=== PATIENT | female | born 1940 | race Caucasian/White ===

== ENCOUNTER 2019-07-07 14:16 | Emergency (ER) | payer OTHER ==
[2019-07-07] MEDS ORDERED: MORPHINE 2 MG/ML SYR ONE (15:14)
[2019-07-07] MEDS ORDERED: ONDANSETRON 4 MG/2 ML VIAL ONE (15:14)
[2019-07-07] MEDS ORDERED: CLINDAMYCIN 900MG/D5W 900 MG/50 ML IVPB IV ONE (15:14)
[2019-07-07] MEDS ORDERED: NA CHLORIDE 0.9% 1,000 ML ONE (15:14)
[2019-07-07 15:22] LABS: Protime INR 1.42
[2019-07-07 15:24] LABS: Absolute Lymphocytes (CBC) 1.6 K/uL (0.7-4.9); Basophils % 0.5 % (0-1.3); Hematocrit 38.2 % (36.0-45.0); Lymphocytes % 15.7 % (15.3-44.8); RBC Red Blood Cell Count 4.24 M/uL (3.86-4.86)
[2019-07-07 15:32] LABS: Albumin 3.5 g/dL (3.4-5.0); Bilirubin Total 0.9 mg/dL (0.2-1.0); Protein, Total 7.2 g/dL (6.4-8.2)
--- NOTE | 2019-07-07 16:03 | RAD REPORT ---
EXAM DESCRIPTION: CT - Soft Tissue Neck W/Contr - 07/07/2019 3:43 pm CLINICAL HISTORY: Neck pain with sore throat COMPARISON: None. TECHNIQUE: Computed axial tomography of the neck was obtained. 50 cc Isovue 300 was administered in travenously. Coronal and sagittal reconstruction was performed. All CT scans are performed using dose optimization technique as appropriate and may include automated exposure control or mA/KV adjustment according to patient size. FINDINGS: Marked edema is present within the subcutaneous tissues superficial to the left mandible and submental subcutaneous tissues. A fluid-filled abscess is not seen. Left aryepiglottic fold is thickened. The remainder of the pharynx, tongue base, larynx and subglotti c trachea appear unremarkable. The parapharyngeal fat is clear The parotid and submandibular glands appear unremarkable. Subcentimeter thyroid nodules likely benign No significant lymphadenopathy is seen The sinuses and mastoids are clear. IMPRESSION: Marked edema within the subcutaneous tissues superficial to the left mandible and submen deep region consistent with cellulitis Mild edema is present within the left aryepiglottic fold. An abscess is not seen
--- NOTE | 2019-07-07 16:13 | ER ---
Nurse's Notes [facility] Name: Erin Pereira Age: 79 yrs Sex: Female : 1940 Arrival Date: 07/07/2019 Time: 14:18 Bed 14 Private MD: Jonathon Mcclain Diagnosis: Dental caries-left mandible swelling, hematoma;Coagulation defect, unspecified-coumadin therapy Presentation: 07/07 14:19 Presenting complaint: Patient states: i had a dental bridge done 2 years ago, and it tw2 was fine, and i think i had pneumonia last week, i went to the dentist on Thursday and he said there is an infection of the bridge, he put me on hydrocodone 7.5, and amoxicillin, i have been taking them since Thursday, and the swelling got worse yesterday, i dont know if the swelling is from the antibiotics or what because i read on it that it can cause swelling as an allergy. Transition of care: patient was not received from another setting of care. Onset of symptoms was July 07, 2019. Risk Assessment: Do you want to hurt yourself or someone else? Patient reports no desire to harm self or others. Initial Sepsis Screen: Does the patient meet any 2 criteria? No. Patient's initial sepsis screen is negative. Does the patient have a suspected source of infection? No. Patient's initial sepsis screen is negative. Care prior to arrival: None. 14:19 Method Of Arrival: Ambulatory tw2 14:19 Acuity: WILLIE 3 tw2 Triage Assessment: 14:22 General: Appears in no apparent distress. Behavior is calm, cooperative, appropriate tw2 for age. Pain: Complains of pain in mouth and left jaw. EENT: Reports pain in lower left third molar, lower left second molar, lower left first molar, lower left second bicuspid and left jaw. Historical: - Allergies: 14:24 No Known Allergies; tw2 - Home Meds: 14:24 amlodipine 5 mg tab 1 tab once daily [Active]; atorvastatin 10 mg oral tab 1 tab once tw2 daily [Active]; carvedilol 3.125 mg oral tab 1 tab 2 times per day [Active]; flecainide 100 mg oral tab 1 tab every 12 hours [Active]; losartan 50 mg oral tab 1 tab once daily [Active]; warfarin 2.5 mg Oral tab 1 tab once daily [Active]; hydrocodone-acetaminophen 7.5-325 mg Oral tab 1 tab every 4 hours [Active]; amoxicillin 875 mg Oral tab 1 tab every 12 hours [Active]; - PMHx: 14:24 Hypertension; Hyperlipidemia; tw2 - Immunization history:: Adult Immunizations. - Social history:: Smoking status: . - Ebola Screening: : Patient denies travel to an Ebola-affected area in the 21 days before illness onset. Screenin:26 Abuse screen: Denies threats or abuse. Nutritional screening: No deficits noted. tw2 Tuberculosis screening: No symptoms or risk factors identified. Fall Risk None identified. Assessment: 14:29 General: Appears in no apparent distress. comfortable, Behavior is calm, cooperative, rb1 Denies fever, Is currently being treated with Amoxicillin x 3 days by her dentist for an infection under the bridge. Was also given Hydrocodone 7.5/325 mg for pain.. Pain: Complains of pain in left jaw Pain currently is 9 out of 10 on a pain scale. Pain began 2-3 days ago. Neuro: Level of Consciousness is awake, alert, obeys commands, Oriented to person, place, time, situation. Cardiovascular: Capillary refill < 3 seconds is brisk in bilateral fingers. Respiratory: Airway is patent Respiratory effort is even, unlabored, Respiratory pattern is regular, symmetrical. GI: No signs and/or symptoms were reported involving the gastrointestinal system. : No signs and/or symptoms were reported regarding the genitourinary system. Derm: Skin is pink, warm \T\ dry. Musculoskeletal: Swelling present in left jaw. 15:30 Reassessment: Patient appears in no apparent distress at this time. No changes from rb1 previously documented assessment. 16:30 Reassessment: Patient appears in no apparent distress at this time. Patient and/or rb1 family updated on plan of care and expected duration. Pain level reassessed. Patient is alert, oriented x 3, equal unlabored respirations, skin warm/dry/pink. 16:48 Reassessment: Discharge pending due to Dr. Reynolds wanting to try to aspirate the left rb1 lower jaw. 17:10 Reassessment: Patient appears in no apparent distress at this time. Patient and/or rb1 family updated on plan of care and expected duration. Pain level reassessed. Patient is alert, oriented x 3, equal unlabored respirations, skin warm/dry/pink. Received verbal order from Dr. Reynolds for Rocephin 1 G IVP x once and Clindamycin 300 mg PO x 1. I reminded Dr. Reynolds that I had already administered the Clindamycin 900 mg IVPB, he verbalized understanding and told me to continue with administration. 100% verbal read back. Vital Signs: 14:21 BP 177 / 73; Pulse 64; Resp 17; Temp 97.8(TE); Pulse Ox 97% on R/A; Weight 74.84 kg tw2 (R); Pain 9/10; 15:30 BP 156 / 58; Pulse 50; Resp 17; Pulse Ox 99% on R/A; rb1 16:30 BP 153 / 64; Pulse 51; Resp 16; Pulse Ox 100% on R/A; Pain 7/10; rb1 17:30 BP 139 / 57; Pulse 55; Resp 17; Pulse Ox 100% on R/A; Pain 0/10; rb1 ED Course: 14:18 Patient arrived in ED. mr 14:19 Jonathon Mcclain MD is Private Physician. mr 14:21 Triage completed. tw2 14:21 Arm band placed on. tw2 14:24 Bed in low position. Call light in reach. Adult w/ patient. tw2 14:[address], RN is Primary Nurse. rb1 14:29 Placed in gown. Side rails up X 1. Pulse ox on. NIBP on. Warm blanket given. rb1 14:31 Frankie Reynolds MD is Attending Physician. jostin 14:47 Radiology exam delayed due to lab results not completed at this time. (BUN/Creatinine). mw3 15:05 Inserted saline lock: 22 gauge in right antecubital area, using aseptic technique. rb1 Blood collected. 16:13 Jonathon Mcclain MD is Referral Physician. jostin 16:13 Saurabh Guo DDS is Referral Physician. jostin 17:32 No provider procedures requiring assistance completed. IV discontinued, intact, rb1 bleeding controlled, No redness/swelling at site. Pressure dressing applied. Administered Medications: 15:19 Drug: NS 0.9% 1000 ml Route: IV; Rate: 1 bolus; Site: right antecubital; rb1 16:27 Follow up: IV Status: Completed infusion rb1 15:19 Drug: Clindamycin 900 mg Route: IVPB; Infused Over: 30 mins; Site: right antecubital; rb1 15:35 Not Given (Patient Refused): morphine 2 mg IVP once; (PAIN>8) RASS on ADMN: Combtv4, rb1 Very Agttd3, Agttd2, Rstlss1, AlertClm0, Drwsy-1, LtSdtn-2, ModSdtn-3, DpSdtn-4, UnArsble-5 x2 15:35 Not Given (Patient Refused): Zofran 4 mg IVP once; over 2 minutes rb1 16:38 Drug: Decadron - Dexamethasone 10 mg Route: IVP; Site: right antecubital; rb1 16:50 Follow up: Response: No adverse reaction rb1 17:00 Drug: Lidocaine-Epinephrine -2 % (1:100,000) 10 ml Route: Infiltration; rb1 17:17 Drug: Clindamycin 300 mg Route: PO; rb1 17:30 Follow up: Response: Medication administered at discharge. rb1 17:18 Drug: Rocephin 1 grams Route: IV; Rate: calculated rate; Site: right antecubital; rb1 17:30 Follow up: Response: No adverse reaction; IV Status: Completed infusion rb1 Outcome: 16:13 Discharge ordered by MD. frankel 17:32 Discharged to home ambulatory, with family. rb1 17:32 Condition: stable 17:32 Discharge instructions given to patient, Instructed on discharge instructions, follow up and referral plans. medication usage, Demonstrated understanding of instructions, follow-up care, medications, Prescriptions given X 2. 17:33 Patient left the ED. rb1 Signatures: Frankie Reynolds MD MD cha Rivera, Mary mr Barber, Rebecca, RN RN rb1 Liss Wilkerson RN RN tw2 [place] Rendon mw3 Corrections: (The following items were deleted from the chart) 14:27 14:19 Presenting complaint: Patient states: i had a dental bridge done 2 years ago, and tw2 it was fine, and i think i had pneumonia last week, i went to the dentist on Thursday and he said there is an infection of the bridge, he put me on hydrocodone 7.5, and amoxicillin, i have been taking them since Thursday, and the swelling got worse yesterday tw2
--- NOTE | 2019-07-07 16:14 | EDPHYS ---
Physician Documentation [facility] Name: Erin Pereira Age: 79 yrs Sex: Female : 1940 Arrival Date: 07/07/2019 Time: 14:18 Bed 14 Private MD: Jonathon Mcclain ED Physician Frankie Reynolds HPI: 07/07 14:47 This 79 yrs old Female presents to ER via Ambulatory with complaints of Mouth jostin Swelling. 14:47 The patient presents with pain, redness, swelling. The problem is located in the lower jostin left second molar and face and left jaw. Onset: The symptoms/episode began/occurred this morning, yesterday. Duration: The symptoms are continuous. Modifying factors: The symptoms are alleviated by nothing, the symptoms are aggravated by chewing, talking. Associated signs and symptoms: The patient has no apparent associated signs or symptoms. Severity of symptoms: At their worst the symptoms were mild, moderate, in the emergency department the symptoms are unchanged. The patient has not experienced similar symptoms in the past. Historical: - Allergies: 14:24 No Known Allergies; tw2 - Home Meds: 14:24 amlodipine 5 mg tab 1 tab once daily [Active]; atorvastatin 10 mg oral tab 1 tab once tw2 daily [Active]; carvedilol 3.125 mg oral tab 1 tab 2 times per day [Active]; flecainide 100 mg oral tab 1 tab every 12 hours [Active]; losartan 50 mg oral tab 1 tab once daily [Active]; warfarin 2.5 mg Oral tab 1 tab once daily [Active]; hydrocodone-acetaminophen 7.5-325 mg Oral tab 1 tab every 4 hours [Active]; amoxicillin 875 mg Oral tab 1 tab every 12 hours [Active]; - PMHx: 14:24 Hypertension; Hyperlipidemia; tw2 - Immunization history:: Adult Immunizations. - Social history:: Smoking status: . - Ebola Screening: : Patient denies travel to an Ebola-affected area in the 21 days before illness onset. ROS: 14:48 Constitutional: Negative for fever, chills, and weight loss, Eyes: Negative for injury, jostin pain, redness, and discharge, Neck: Negative for injury, pain, and swelling, Cardiovascular: Negative for chest pain, palpitations, and edema, Respiratory: Negative for shortness of breath, cough, wheezing, and pleuritic chest pain, Abdomen/GI: Negative for abdominal pain, nausea, vomiting, diarrhea, and constipation, Back: Negative for injury and pain, : Negative for injury, bleeding, discharge, and swelling, MS/Extremity: Negative for injury and deformity, Skin: Negative for injury, rash, and discoloration, Neuro: Negative for headache, weakness, numbness, tingling, and seizure, Psych: Negative for depression, anxiety, suicide ideation, homicidal ideation, and hallucinations, Allergy/Immunology: Negative for hives, rash, and allergies, Endocrine: Negative for neck swelling, polydipsia, polyuria, polyphagia, and marked weight changes, Hematologic/Lymphatic: Negative for swollen nodes, abnormal bleeding, and unusual bruising. 14:48 ENT: Positive for Teeth pain Exam: 14:48 Constitutional: This is a well developed, well nourished patient who is awake, alert, jostin and in no acute distress. Head/Face: Normocephalic, atraumatic. Eyes: Pupils equal round and reactive to light, extra-ocular motions intact. Lids and lashes normal. Conjunctiva and sclera are non-icteric and not injected. Cornea within normal limits. Periorbital areas with no swelling, redness, or edema. Neck: Trachea midline, no thyromegaly or masses palpated, and no cervical lymphadenopathy. Supple, full range of motion without nuchal rigidity, or vertebral point tenderness. No Meningismus. Chest/axilla: Normal chest wall appearance and motion. Nontender with no deformity. No lesions are appreciated. Cardiovascular: Regular rate and rhythm with a normal S1 and S2. No gallops, murmurs, or rubs. Normal PMI, no JVD. No pulse deficits. Respiratory: Lungs have equal breath sounds bilaterally, clear to auscultation and percussion. No rales, rhonchi or wheezes noted. No increased work of breathing, no retractions or nasal flaring. Abdomen/GI: Soft, non-tender, with normal bowel sounds. No distension or tympany. No guarding or rebound. No evidence of tenderness throughout. Back: No spinal tenderness. No costovertebral tenderness. Full range of motion. Skin: Warm, dry with normal turgor. Normal color with no rashes, no lesions, and no evidence of cellulitis. MS/ Extremity: Pulses equal, no cyanosis. Neurovascular intact. Full, normal range of motion. Neuro: Awake and alert, GCS 15, oriented to person, place, time, and situation. Cranial nerves II-XII grossly intact. Motor strength 5/5 in all extremities. Sensory grossly intact. Cerebellar exam normal. Normal gait. Psych: Awake, alert, with orientation to person, place and time. Behavior, mood, and affect are within normal limits. 14:48 ENT: Mouth: Gums: bleeding, reddened, swollen, on the lower left second molar, lower left first molar and lower left second bicuspid. Vital Signs: 14:21 BP 177 / 73; Pulse 64; Resp 17; Temp 97.8(TE); Pulse Ox 97% on R/A; Weight 74.84 kg tw2 (R); Pain 9/10; 15:30 BP 156 / 58; Pulse 50; Resp 17; Pulse Ox 99% on R/A; rb1 16:30 BP 153 / 64; Pulse 51; Resp 16; Pulse Ox 100% on R/A; Pain 7/10; rb1 17:30 BP 139 / 57; Pulse 55; Resp 17; Pulse Ox 100% on R/A; Pain 0/10; rb1 Procedures: 17:14 I \T\ D: Incision and drainage was performed for an abscess of the left lower left first jostin molar and lower left second molar and lower left third molar and left jaw Prepped with none. Anesthetized with 3 ml's 1% Lidocaine w/ Epi. Incised with #11 blade. Drained small amount bloody fluid. the patient tolerated the procedure well. MDM: 14:31 Patient medically screened. [facility] 14:49 Data reviewed: vital signs, nurses notes, lab test result(s), radiologic studies, CT jostin scan. 07/07 14:43 Order name: CBC with Diff [facility] 07/07 14:43 Order name: Comprehensive Metabolic Panel [facility] 07/07 14:43 Order name: PT-INR [facility] 07/07 15:32 Order name: Comprehensive Metabolic Panel; Complete Time: 15:34 EDMS 07/07 15:36 Order name: CBC with Automated Diff; Complete Time: 15:40 EDMS 07/07 15:36 Order name: Protime (+INR); Complete Time: 15:40 EDMS 07/07 14:43 Order name: CT Soft Tissue Neck W/contr [facility] 07/07 16:04 Order name: CT; Complete Time: 16:10 EDMS 07/07 14:49 Order name: IV Start; Complete Time: 15:10 tw2 07/07 16:53 Order name: Suture Tray at Bedside; Complete Time: 17:11 jostin Administered Medications: 15:19 Drug: NS 0.9% 1000 ml Route: IV; Rate: 1 bolus; Site: right antecubital; rb1 16:27 Follow up: IV Status: Completed infusion rb1 15:19 Drug: Clindamycin 900 mg Route: IVPB; Infused Over: 30 mins; Site: right antecubital; rb1 15:35 Not Given (Patient Refused): morphine 2 mg IVP once; (PAIN>8) RASS on ADMN: Combtv4, rb1 Very Agttd3, Agttd2, Rstlss1, AlertClm0, Drwsy-1, LtSdtn-2, ModSdtn-3, DpSdtn-4, UnArsble-5 x2 15:35 Not Given (Patient Refused): Zofran 4 mg IVP once; over 2 minutes rb1 16:38 Drug: Decadron - Dexamethasone 10 mg Route: IVP; Site: right antecubital; rb1 16:50 Follow up: Response: No adverse reaction rb1 17:00 Drug: Lidocaine-Epinephrine -2 % (1:100,000) 10 ml Route: Infiltration; rb1 17:17 Drug: Clindamycin 300 mg Route: PO; rb1 17:30 Follow up: Response: Medication administered at discharge. rb1 17:18 Drug: Rocephin 1 grams Route: IV; Rate: calculated rate; Site: right antecubital; rb1 17:30 Follow up: Response: No adverse reaction; IV Status: Completed infusion rb1 Disposition: 07/07/19 16:13 Discharged to Home. Impression: Dental caries - left mandible swelling, hematoma, Coagulation defect, unspecified - coumadin therapy. - Condition is Stable. - Discharge Instructions: Dental Pain, Hematoma, Hematoma, [id number], Dental Pain, [id number]. - Prescriptions for Clindamycin HCl 300 mg Oral Capsule - take 1 capsule by ORAL route every 6 hours for 10 days; 40 capsule. Tylenol- Codeine #3 300-30 mg Oral Tablet - take 2 tablet by ORAL route every 6 hours As needed; 30 tablet. - Medication Reconciliation Form, Thank You Letter, Antibiotic Education, Prescription Opioid Use form. - Follow up: Jonathon Mcclain; When: 2 - 3 days; Reason: Recheck today's complaints, Continuance of care, Re-evaluation by your physician. Follow up: Saurabh Guo; When: 1 - 2 days; Reason: Recheck today's complaints, Re-evaluation by your physician. - Problem is new. - Symptoms have improved. Signatures: Dispatcher [employer] EDTX Frankie Reynolds MD MD cha Barber, Rebecca, RN RN rb1 Liss Wilkerson RN RN tw2 Corrections: (The following items were deleted from the chart) 17:33 16:13 07/07/2019 16:13 Discharged to Home. Impression: Dental caries - left mandible rb1 swelling, hematoma; Coagulation defect, unspecified - coumadin therapy. Condition is Stable. Discharge Instructions: Dental Pain, Dental Pain, [id number]. Prescriptions for Clindamycin HCl 300 mg Oral Capsule - take 1 capsule by ORAL route every 6 hours for 10 days; 40 capsule, Tylenol-Codeine #3 300-30 mg Oral Tablet - take 2 tablet by ORAL route every 6 hours As needed; 30 tablet. and Forms are Medication Reconciliation Form, Thank You Letter, Antibiotic Education, Prescription Opioid Use. Follow up: Jonathon Mcclain; When: 2 - 3 days; Reason: Recheck today's complaints, Continuance of care, Re-evaluation by your physician. Follow up: Saurabh Guo; When: 1 - 2 days; Reason: Recheck today's complaints, Re-evaluation by your physician. Problem is new. Symptoms have improved. jostin
[2019-07-07] MEDS ORDERED: dexAMETHasone 10 MG/ML VIAL ONE (16:31)
[2019-07-07] MEDS ORDERED: LIDOCAINE 1% W/EPI 1:100,000 MDV 20 ML VIAL ONE (16:59)
[2019-07-07] MEDS ORDERED: CEFTRIAXONE/SWI 1gm 1 GM/10 ML SYR ONE (17:14)
[2019-07-07] MEDS ORDERED: CLINDAMYCIN HCL 150 MG CAP ONE (17:14)
[2019-07-07 18:51] VITALS: TEMP 97.8
[2019-07-07 18:54] VITALS: O2SAT 100
[2019-07-07 18:55] VITALS: BP 139/57
[2019-07-08] MEDS ORDERED: ONDANSETRON 4 MG/2 ML VIAL ONE (08:56)
== END 2019-07-07 17:33 | disposition home or self-care (01) ==
LOC: ER 14:16
PROC: 0C9XXZ1 Drainage of Lower Tooth, External Approach, Multiple (ICD-10-PCS; principal; 2019-07-07)
DX: K02.9 Dental caries, unspecified (principal); D68.9 Coagulation defect, unspecified; S00.83XA Contusion of other part of head, initial encounter; I10 Essential (primary) hypertension; E78.5 Hyperlipidemia, unspecified
CPT/HCPCS: 96361; 85025; 36415; 85610; 80053; 70491; 96375; 96374; 99284; 41800; Q9967; J1100; J2270; J0696; J7030; J2405

== ENCOUNTER 2019-08-13 07:03 | Emergency (ER) | payer OTHER ==
[2019-08-13 08:13] LABS: Absolute Lymphocytes (CBC) 1.3 K/uL (0.7-4.9); Basophils % 1.1 % (0-1.3); Hematocrit 40.5 % (36.0-45.0); Lymphocytes % 26.2 % (15.3-44.8); MPV 8.4 fL (7.6-11.3); RBC Red Blood Cell Count 4.56 M/uL (3.86-4.86)
[2019-08-13 08:26] LABS: Protime INR 3.32
[2019-08-13 08:36] LABS: Albumin 3.6 g/dL (3.4-5.0); Bilirubin Total 0.8 mg/dL (0.2-1.0); Protein, Total 7.3 g/dL (6.4-8.2)
[2019-08-13] MEDS ORDERED: CIPROFLOXACIN HCL 500 MG TAB ONE (09:00)
[2019-08-13 09:36] VITALS: TEMP 97
--- NOTE | 2019-08-13 09:37 | ER ---
Nurse's Notes [facility] Name: Erin Pereira Age: 79 yrs Sex: Female : 1940 Arrival Date: 08/13/2019 Time: 07:07 Bed 7 Private MD: Jonathon Mcclain Diagnosis: Otitis externa-bleeding;Coagulation defect, unspecified-coumadin therapy Presentation: 08/13 07:17 Presenting complaint: Patient states: decreased hearing and bleeding noted from L ear ss since yesterday. Denies pain. Transition of care: patient was not received from another setting of care. Onset of symptoms was August 12, 2019. Risk Assessment: Do you want to hurt yourself or someone else? Patient reports no desire to harm self or others. Initial Sepsis Screen: Does the patient meet any 2 criteria? No. Patient's initial sepsis screen is negative. Does the patient have a suspected source of infection? No. Patient's initial sepsis screen is negative. Care prior to arrival: None. 07:17 Method Of Arrival: Ambulatory ss 07:17 Acuity: WILLIE 4 ss Historical: - Allergies: 07:19 Amoxicillin; ss - Home Meds: 07:37 amlodipine 5 mg tab 1 tab once daily [Active]; warfarin 2.5 mg Oral tab 1 tab once tw2 daily [Active]; losartan 50 mg Oral tab 1 tab once daily [Active]; hydrocodone-acetaminophen 7.5-325 mg Oral tab 1 tab every 4 hours [Active]; amoxicillin 875 mg Oral tab 1 tab every 12 hours [Active]; atorvastatin 10 mg Oral tab 1 tab once daily [Active]; carvedilol 3.125 mg Oral tab 1 tab 2 times per day [Active]; flecainide 100 mg Oral tab 1 tab every 12 hours [Active]; - PMHx: 07:19 Hyperlipidemia; Hypertension; ss - Immunization history:: Adult Immunizations up to date. - Social history:: Smoking status: Patient/guardian denies using tobacco. - Ebola Screening: : Patient denies exposure to infectious person Patient denies travel to an Ebola-affected area in the 21 days before illness onset. - Family history:: not pertinent. Screenin:38 Abuse screen: Denies threats or abuse. Nutritional screening: No deficits noted. tw2 Tuberculosis screening: No symptoms or risk factors identified. Fall Risk Secondary diagnosis (15 points) impaired mobility. Assessment: 07:33 General: Appears in no apparent distress. comfortable, Behavior is calm, cooperative, jl7 appropriate for age. Pain: Denies pain. Neuro: Level of Consciousness is awake, alert, obeys commands, Oriented to person, place, time, situation. Cardiovascular: Denies chest pain, lightheadedness, Patient's skin is warm and dry. Respiratory: Airway is patent Respiratory effort is even, unlabored, Respiratory pattern is regular, symmetrical, Denies shortness of breath. GI: No signs and/or symptoms were reported involving the gastrointestinal system. Patient currently denies diarrhea, nausea, vomiting. : No signs and/or symptoms were reported regarding the genitourinary system. EENT: Tympanic membrane not visualized left ear Ear canal w/ bleeding noted from left ear. Derm: Skin is pink, warm \T\ dry. Musculoskeletal: No signs and/or symptoms reported regarding the musculoskeletal system. 07:36 Reassessment: provider at bedside at this time. tw2 08:30 Reassessment: Patient appears in no apparent distress at this time. No changes from jl7 previously documented assessment. Patient and/or family updated on plan of care and expected duration. Pain level reassessed. Patient is alert, oriented x 3, equal unlabored respirations, skin warm/dry/pink. 09:00 Reassessment: Pt will be discharged once ERD sees pt for discharge instructions. jl7 Vital Signs: 07:19 Resp 17; Temp 97.0(TE); Weight 74.84 kg; Pain 0/10; ss 07:36 BP 136 / 58; Pulse 59; Pulse Ox 100% on R/A; tw2 08:11 BP 137 / 36; Pulse 51; Resp 17; Pulse Ox 99% on R/A; tw2 09:27 BP 133 / 60; Pulse 60; Resp 17 S; Pulse Ox 99% on R/A; Pain 0/10; jl7 ED Course: 07:07 Patient arrived in ED. es 07:07 Jonathon Mcclain MD is Private Physician. es 07:14 Bed in low position. Call light in reach. tw2 07:18 Triage completed. ss 07:18 Frankie Reynolds MD is Attending Physician. jostin 07:19 Arm band placed on right wrist. ss 07:21 Mancini, Jahala, RN is Primary Nurse. jl7 08:06 Initial lab(s) drawn, by nd, sent to lab. Inserted saline lock: 22 gauge in right jl7 forearm, using aseptic technique. Blood collected. 08:50 Aurelia Kim MD is Referral Physician. [facility] 09:27 No provider procedures requiring assistance completed. IV discontinued, intact, jl7 bleeding controlled, No redness/swelling at site. Pressure dressing applied. Administered Medications: 09:00 Drug: Cipro 500 mg Route: PO; 7 09:27 Follow up: Response: No adverse reaction jl7 Outcome: 08:50 Discharge ordered by . [facility] 09:27 Discharged to home ambulatory, with family. jl7 09:27 Condition: stable 09:27 Discharge instructions given to patient, family, Instructed on discharge instructions, follow up and referral plans. medication usage, Demonstrated understanding of instructions, follow-up care, medications, Prescriptions given X 1. 09:28 Patient left the ED. jl7 Signatures: Frankie Reynolds MD MD cha Salyer, Edna es Smirch, Shelby, RN RN Liss Wilkerson RN RN tw2 Nila Mancini, SHERIE RN jl7
[2019-08-13 09:39] VITALS: O2SAT 99
[2019-08-13 09:40] VITALS: BP 133/60
--- NOTE | 2019-08-13 09:40 | EDPHYS ---
Physician Documentation [facility] Name: Erin Pereira Age: 79 yrs Sex: Female : 1940 Arrival Date: 08/13/2019 Time: 07:07 Bed 7 Private MD: Jonathon Mcclain ED Physician Frankie Reynolds HPI: 08/13 07:44 This 79 yrs old Female presents to ER via Ambulatory with complaints of Ear jostin bleeding. 07:44 The patient presents with drainage, tenderness, bleeding. The complaints affect the jostin left ear. Onset: The symptoms/episode began/occurred 1 day(s) ago. Modifying factors: The symptoms are alleviated by nothing, the symptoms are aggravated by nothing. Associated signs and symptoms: The patient has no apparent associated signs or symptoms. Severity of symptoms: At their worst the symptoms were mild. The patient has not experienced similar symptoms in the past. Historical: - Allergies: 07:19 Amoxicillin; ss - Home Meds: 07:37 amlodipine 5 mg tab 1 tab once daily [Active]; warfarin 2.5 mg Oral tab 1 tab once tw2 daily [Active]; losartan 50 mg Oral tab 1 tab once daily [Active]; hydrocodone-acetaminophen 7.5-325 mg Oral tab 1 tab every 4 hours [Active]; amoxicillin 875 mg Oral tab 1 tab every 12 hours [Active]; atorvastatin 10 mg Oral tab 1 tab once daily [Active]; carvedilol 3.125 mg Oral tab 1 tab 2 times per day [Active]; flecainide 100 mg Oral tab 1 tab every 12 hours [Active]; - PMHx: 07:19 Hyperlipidemia; Hypertension; ss - Immunization history:: Adult Immunizations up to date. - Social history:: Smoking status: Patient/guardian denies using tobacco. - Ebola Screening: : Patient denies exposure to infectious person Patient denies travel to an Ebola-affected area in the 21 days before illness onset. - Family history:: not pertinent. ROS: 07:44 Constitutional: Negative for fever, chills, and weight loss, Eyes: Negative for injury, jostin pain, redness, and discharge, Neck: Negative for injury, pain, and swelling, Cardiovascular: Negative for chest pain, palpitations, and edema, Respiratory: Negative for shortness of breath, cough, wheezing, and pleuritic chest pain, Abdomen/GI: Negative for abdominal pain, nausea, vomiting, diarrhea, and constipation, Back: Negative for injury and pain, : Negative for injury, bleeding, discharge, and swelling, MS/Extremity: Negative for injury and deformity, Skin: Negative for injury, rash, and discoloration, Neuro: Negative for headache, weakness, numbness, tingling, and seizure, Psych: Negative for depression, anxiety, suicide ideation, homicidal ideation, and hallucinations, Allergy/Immunology: Negative for hives, rash, and allergies, Endocrine: Negative for neck swelling, polydipsia, polyuria, polyphagia, and marked weight changes, Hematologic/Lymphatic: Negative for swollen nodes, abnormal bleeding, and unusual bruising. 07:44 ENT: Positive for drainage from ear(s), ear pain. Exam: 07:44 Constitutional: This is a well developed, well nourished patient who is awake, alert, jostin and in no acute distress. Head/Face: Normocephalic, atraumatic. Eyes: Pupils equal round and reactive to light, extra-ocular motions intact. Lids and lashes normal. Conjunctiva and sclera are non-icteric and not injected. Cornea within normal limits. Periorbital areas with no swelling, redness, or edema. Neck: Trachea midline, no thyromegaly or masses palpated, and no cervical lymphadenopathy. Supple, full range of motion without nuchal rigidity, or vertebral point tenderness. No Meningismus. Chest/axilla: Normal chest wall appearance and motion. Nontender with no deformity. No lesions are appreciated. Cardiovascular: Regular rate and rhythm with a normal S1 and S2. No gallops, murmurs, or rubs. Normal PMI, no JVD. No pulse deficits. Respiratory: Lungs have equal breath sounds bilaterally, clear to auscultation and percussion. No rales, rhonchi or wheezes noted. No increased work of breathing, no retractions or nasal flaring. Abdomen/GI: Soft, non-tender, with normal bowel sounds. No distension or tympany. No guarding or rebound. No evidence of tenderness throughout. Back: No spinal tenderness. No costovertebral tenderness. Full range of motion. Female : Normal external genitalia. Skin: Warm, dry with normal turgor. Normal color with no rashes, no lesions, and no evidence of cellulitis. MS/ Extremity: Pulses equal, no cyanosis. Neurovascular intact. Full, normal range of motion. Neuro: Awake and alert, GCS 15, oriented to person, place, time, and situation. Cranial nerves II-XII grossly intact. Motor strength 5/5 in all extremities. Sensory grossly intact. Cerebellar exam normal. Normal gait. Psych: Awake, alert, with orientation to person, place and time. Behavior, mood, and affect are within normal limits. 07:44 ENT: Ear canal(s): bloody discharge, clotted blood. Vital Signs: 07:19 Resp 17; Temp 97.0(TE); Weight 74.84 kg; Pain 0/10; ss 07:36 BP 136 / 58; Pulse 59; Pulse Ox 100% on R/A; tw2 08:11 BP 137 / 36; Pulse 51; Resp 17; Pulse Ox 99% on R/A; tw2 09:27 BP 133 / 60; Pulse 60; Resp 17 S; Pulse Ox 99% on R/A; Pain 0/10; jl7 MDM: 07:18 Patient medically screened. [facility] 07:49 Data reviewed: vital signs, nurses notes, lab test result(s). [facility] 08/13 07:44 Order name: CBC with Diff; Complete Time: 08:34 [facility] 08/13 07:44 Order name: Comprehensive Metabolic Panel; Complete Time: 08:49 [facility] 08/13 07:44 Order name: PT-INR; Complete Time: 08:34 [facility] 08/13 07:44 Order name: Ptt, Activated; Complete Time: 08:34 [facility] Administered Medications: 09:00 Drug: Cipro 500 mg Route: PO; jl7 09:27 Follow up: Response: No adverse reaction 7 Disposition: 08/13/19 08:50 Discharged to Home. Impression: Otitis externa - bleeding, Coagulation defect, unspecified - coumadin therapy. - Condition is Stable. - Discharge Instructions: Otitis Externa, Otitis Externa, [id number]. - Prescriptions for Cipro 500 mg Oral Tablet - take 1 tablet by ORAL route every 12 hours for 7 days; 14 tablet. - Medication Reconciliation Form, Thank You Letter, Antibiotic Education, Prescription Opioid Use form. - Follow up: Aurelia Kim; When: 2 - 3 days; Reason: Recheck today's complaints, Continuance of care, Re-evaluation by your physician. - Problem is new. - Symptoms have improved. Signatures: Dispatcher [employer] EDMS Frankie Reynolds MD MD cha Smirch, Shelby RN RN ss Liss Wilkerson RN RN tw2 iNla Mancini RN RN jl7 Corrections: (The following items were deleted from the chart) 09:28 08:50 08/13/2019 08:50 Discharged to Home. Impression: Otitis externa - bleeding; jl7 Coagulation defect, unspecified - coumadin therapy. Condition is Stable. Discharge Instructions: Otitis Externa, Otitis Externa, [id number]. Prescriptions for Cipro 500 mg Oral Tablet - take 1 tablet by ORAL route every 12 hours for 7 days; 14 tablet. and Forms are Medication Reconciliation Form, Thank You Letter, Antibiotic Education, Prescription Opioid Use. Follow up: Aurelia Kim; When: 2 - 3 days; Reason: Recheck today's complaints, Continuance of care, Re-evaluation by your physician. Problem is new. Symptoms have improved. jostin
== END 2019-08-13 09:28 | disposition home or self-care (01) ==
LOC: ER 07:03
DX: H60.322 Hemorrhagic otitis externa, left ear (principal); D68.8 Other specified coagulation defects; Z79.01 Long term (current) use of anticoagulants; Z88.1 Allergy status to other antibiotic agents; I10 Essential (primary) hypertension; E78.5 Hyperlipidemia, unspecified
CPT/HCPCS: 36415; 80053; 85025; 85610; 85730; 99284